=== PATIENT | male | born 1995 | race Hispanic/Latino ===

== ENCOUNTER → 2018-11-02 | Outpatient (CLI) | payer OTHER | END | disposition home or self-care (01) | LOC: EEVIPCON 11:44 → RAH 11:44 | PROVIDERS: ATTEND Internal Medicine | DX: M25.475 Effusion, left foot (principal); M20.42 Other hammer toe(s) (acquired), left foot; M21.962 Unspecified acquired deformity of left lower leg | CPT/HCPCS: 73630 ==